=== PATIENT | female | born 1990 | race Caucasian/White ===

== ENCOUNTER 2017-05-25 22:18 | Emergency (ER) | payer BC ==
[~2017-05-25] VITALS: Ht 170.2 cm; Wt 88.1 kg
[2017-05-25 22:21] VITALS: Ht 170.2 cm; Wt 88.1 kg
[2017-05-25] MEDS ORDERED: ALBUT/IPRATROP 3MG/0.5MG NEB 3 ML VIAL INH STA (22:37)
--- NOTE | 2017-05-25 22:46 | DIAGNOSTIC IMAGING REPORT ---
CHEST ONE VIEW PORTABLE CLINICAL HISTORY: Abscess. Wheezing. Difficulty breathing. COMPARISON STUDY: No previous studies for comparison. FINDINGS: The lung volumes are normal. Lungs are clear. No pneumothorax or pleural effusion is noted. Cardiac size is normal. Mediastinal contours are normal. There is no evidence of pulmonary edema. IMPRESSION: No acute cardiopulmonary findings. Electronically signed by: Siva Bruce M.D. 05/25/2017 10:45 PM Dictated Date/Time: 05/25/2017 10:44 PM
[2017-05-25] MEDS ORDERED: CLR10 PO (23:12)
[2017-05-25] MEDS ORDERED: CHOL2000 PO (23:12)
[2017-05-25] MEDS ORDERED: LISI10TA PO (23:12)
[2017-05-25] MEDS ORDERED: RMCI INJ (23:12)
[2017-05-25 23:13] LABS: BASO % 0.8 %; BASO ABS # 0.08 K/uL (0-0.2); EOS % 9.7 %; EOS ABS # 1.03 K/uL (0-0.5); HEMATOCRIT 33.7 % (37-47); HEMOGLOBIN 11.2 g/dL (12.0-16.0); IG# 0.01 K/uL (0.00-0.02); LYMPH % 40.1 %; LYMPH ABS # 4.25 K/uL (1.2-3.4); MEAN CELL VOLUME 85.3 fL (80-100); MEAN CORPUSCULAR HEMOGLOBIN 28.4 pg (25-34); MEAN CORPUSCULAR HGB CONC 33.2 g/dl (32-36); MEAN PLATELET VOLUME 10.1 fL (7.4-10.4); MONO ABS # 0.85 K/uL (0.11-0.59); NEUT % 41.3 %; NEUT ABS # 4.37 K/uL (1.4-6.5); PLATELET COUNT 305 K/uL (130-400); RED CELL DISTRIBUTION WIDTH CV 14.4 % (11.5-14.5); RED CELL DISTRIBUTION WIDTH SD 45.2 fL (36.4-46.3); WHITE BLOOD COUNT 10.59 K/uL (4.8-10.8)
[2017-05-25 23:26] LABS: INR 0.9 (0.9-1.1); PTT PATIENT 25.2 SECONDS (21.0-31.0)
[2017-05-25 23:31] LABS: ALBUMIN 3.7 gm/dl (3.4-5.0); ALT/SGPT 67 U/L (12-78); BLOOD UREA NITROGEN 20 mg/dl (7-18); CALCIUM 8.8 mg/dl (8.5-10.1); CARBON DIOXIDE 27 mmol/L (21-32); CREATININE 1.02 mg/dl (0.60-1.20); GLUCOSE 100 mg/dl (70-99); POTASSIUM 3.7 mmol/L (3.5-5.1); SODIUM 137 mmol/L (136-145)
[2017-05-25 23:36] LABS: ALKALINE PHOSPHATASE 97 U/L (45-117); AST/SGOT 48 U/L (15-37); TOTAL PROTEIN 8.5 gm/dl (6.4-8.2)
[2017-05-25 23:41] LABS: INFLUENZA B ANTIGEN Neg for Influ B (NEG)
[2017-05-26 00:19] VITALS: BP 142/69; PULSE 87; TEMP 36.8; O2SAT 99
[2017-05-26] MEDS ORDERED: ALBUTEROL HFA 8 GM INHALER INH STA (00:50)
--- NOTE | 2017-05-26 04:18 | EMERGENCY ROOM VISIT NOTE ---
History First contact with patient: 22:25 Chief Complaint: RESPIRATORY PROBLEMS Stated Complaint: WHEEZING,HEAVY CHEST, TROUBLE BREATHING Nursing Triage Summary: Patient c/o SOB that began a few days ago. Concerned with pnx. Hx: Crohns. History of Present Illness The patient is a 26 year old female who presents to the Emergency Room with complaints of cough, congestion, chest pain and dyspnea for the past day has had a cold for the past 3 days. Patient has Crohn's disease and received Remicade and Flexzan 8 infusion on Friday. Patient complains of subjective fever and chills with malaise. She has received the flu vaccine. No recent antibiotics. No recent travel. Patient denies abdominal pain, neck stiffness, sore throat, vomiting, diarrhea, back pain, urinary symptoms. She is tolerating p.o. fluids and food. Review of Systems An 10 system review of systems was completed with positives and pertinent negatives listed in the HPI. Past Medical/Surgical History Crohn's, hypertension Social History Smoking Status: Never Smoker Smokeless Tobacco Use: No Drug Use: none Marital Status: single Occupation Status: employed Current/Historical Medications Scheduled Cholecalciferol (Vitamin D3), 2,000 UNITS PO QAM Infliximab (Remicade), 1 DOSE INJ [id number] Lisinopril (Prinivil), 10 MG PO QAM Loratadine (Claritin), 10 MG PO QAM Physical Exam Vital Signs Date Time Temp Pulse Resp B/P (MAP) Pulse Ox O2 Delivery O2 Flow Rate FiO2 05/26/17 00:19 36.8 87 18 142/69 99 Room Air 05/25/17 23:04 Room Air 05/25/17 22:21 36.7 79 18 160/97 96 Room Air Physical Exam VITALS: Vitals are noted on the nurse's note and reviewed by myself. Vital signs stable. GENERAL: Pleasant female, in no acute distress, nondiaphoretic, well-developed well-nourished. SKIN: The skin was without rashes, erythema, edema, or bruising. There is no tenting of the skin. Capillary reflex less than 2 seconds. HEAD: Normocephalic atraumatic. EARS: External auditory canals clear, tympanic membranes pearly noble without erythema or effusion bilaterally. EYES: Pupils equal round and reactive to light and accommodation. Conjunctivae without injection, sclerae without icterus. Extraocular movements intact. NOSE: Patent, turbinates without inflammation or discharge. No sinus tenderness. MOUTH: Mucous membranes moist. Pharynx without erythema or exudate. Uvula midline. Airway patent. Tongue does not deviate. NECK: Supple without nuchal rigidity. No lymphadenopathy. No thyromegaly. Cervical spine is nontender. No JVD. HEART: Regular rate and rhythm without murmurs gallops or rubs. LUNGS: Clear to auscultation bilaterally without wheezes, rales or rhonchi. No dullness to percussion. No retractions or accessory muscle use. ABDOMEN: Positive bowel sounds x 4. Normal tympanic percussion. Soft, nontender, without masses or organomegaly. Duque sign negative. No guarding or rebound tenderness. MUSCULOSKELETAL: No muscle atrophy, erythema, or edema noted. NEURO: Patient was alert and oriented to person place and time. Normal sensation to light and sharp touch. No focal neurological deficits. Medical Decision & Procedures Laboratory Results 05/25/17 22:54 Red Blood Count 3.95, Mean Corpuscular Volume 85.3, Mean Corpuscular Hemoglobin 28.4, Mean Corpuscular Hemoglobin Concent 33.2, Mean Platelet Volume 10.1, Neutrophils (%) (Auto) 41.3, Lymphocytes (%) (Auto) 40.1, Monocytes (%) (Auto) 8.0, Eosinophils (%) (Auto) 9.7, Basophils (%) (Auto) 0.8, Neutrophils # (Auto) 4.37, Lymphocytes # (Auto) 4.25, Monocytes # (Auto) 0.85, Eosinophils # (Auto) 1.03, Basophils # (Auto) 0.08 05/25/17 22:54 Test 05/25/17 22:54 05/25/17 22:59 05/25/17 23:06 White Blood Count 10.59 K/uL (4.8-10.8) Red Blood Count 3.95 M/uL (4.2-5.4) Hemoglobin 11.2 g/dL (12.0-16.0) Hematocrit 33.7 % (37-47) Mean Corpuscular Volume 85.3 fL (80-100) Mean Corpuscular Hemoglobin 28.4 pg (25-34) Mean Corpuscular Hemoglobin Concent 33.2 g/dl (32-36) Platelet Count 305 K/uL (130-400) Mean Platelet Volume 10.1 fL (7.4-10.4) Neutrophils (%) (Auto) 41.3 % Lymphocytes (%) (Auto) 40.1 % Monocytes (%) (Auto) 8.0 % Eosinophils (%) (Auto) 9.7 % Basophils (%) (Auto) 0.8 % Neutrophils # (Auto) 4.37 K/uL (1.4-6.5) Lymphocytes # (Auto) 4.25 K/uL (1.2-3.4) Monocytes # (Auto) 0.85 K/uL (0.11-0.59) Eosinophils # (Auto) 1.03 K/uL (0-0.5) Basophils # (Auto) 0.08 K/uL (0-0.2) RDW Standard Deviation 45.2 fL (36.4-46.3) RDW Coefficient of Variation 14.4 % (11.5-14.5) Immature Granulocyte % (Auto) 0.1 % Immature Granulocyte # (Auto) 0.01 K/uL (0.00-0.02) Prothrombin Time 9.6 SECONDS (9.0-12.0) Prothromb Time International Ratio 0.9 (0.9-1.1) Activated Partial Thromboplast Time 25.2 SECONDS (21.0-31.0) Partial Thromboplastin Ratio 1.0 D-Dimer 320 ug/L FEU (0-500) Anion Gap 7.0 mmol/L (3-11) Est Creatinine Clear Calc Drug Dose 93.6 ml/min Estimated GFR () 86.7 Estimated GFR (Non- 74.8 BUN/Creatinine Ratio 19.6 (10-20) Calcium Level 8.8 mg/dl (8.5-10.1) Total Bilirubin 0.2 mg/dl (0.2-1) Aspartate Amino Transf (AST/SGOT) 48 U/L (15-37) Alanine Aminotransferase (ALT/SGPT) 67 U/L (12-78) Alkaline Phosphatase 97 U/L (45-117) Troponin I < 0.015 ng/ml (0-0.045) Total Protein 8.5 gm/dl (6.4-8.2) Albumin 3.7 gm/dl (3.4-5.0) Globulin 4.8 gm/dl (2.5-4.0) Albumin/Globulin Ratio 0.8 (0.9-2) Procalcitonin < 0.05 ng/ml (0-0.5) Human Chorionic Gonadotropin, Qual NEG (NEG) Bedside Lactic Acid Venous 0.62 mmol/L (0.90-1.70) Bedside Troponin I < 0.030 ng/ml (0-0.045) Influenza Type A Antigen Neg for Influ A (NEG) Influenza Type B Antigen Neg for Influ B (NEG) Medications Administered Medications (Trade) Dose Ordered Sig/Gopal Route Start Time Stop Time Status Last Admin Dose Admin Albuterol/ Ipratropium (Duoneb) 3 ml NOW STAT INH 05/25/17 22:37 05/25/17 22:38 DC 05/25/17 23:03 3 ML Albuterol (Ventolin Hfa Inhaler) 2 puffs ONE STAT INH 05/26/17 00:50 05/26/17 00:51 DC 05/26/17 00:50 2 PUFFS ED Course Prior records/ancillary studies reviewed. Triage Nursing notes reviewed. Additional history obtained from friend. The patient's history was concerning for cough, congestion, dyspnea and chest pain. Differential diagnosis: Etiologies such as cardiac ischemia, aortic dissection, pulmonary embolism, pneumonia, pneumothorax, musculoskeletal, infections, pericarditis, myocarditis , esophageal rupture, gastrointestinal, as well as others were entertained. Physical examination: As above. ER treatment provided: Nebulizer On reassessment the patient felt better. Diagnostic interpretation by me: The electrocardiogram was negative for pathologic change. Normal sinus, normal intervals, no acute ST-T wave changes, rate is 73. Impression normal sinus rhythm at a rate of by myself The labs revealed negative d-dimer. Negative troponin, negative lactic acid Blood cultures pending Imaging studies: Chest x-ray as above CHEST ONE VIEW PORTABLE CLINICAL HISTORY: Abscess. Wheezing. Difficulty breathing. COMPARISON STUDY: No previous studies for comparison. FINDINGS: The lung volumes are normal. Lungs are clear. No pneumothorax or pleural effusion is noted. Cardiac size is normal. Mediastinal contours are normal. There is no evidence of pulmonary edema. IMPRESSION: No acute cardiopulmonary findings. Electronically signed by: Siva Bruce M.D. Exam and history seems consistent with bronchitis. Patient felt much better to be medicated as above. No pneumonia on x-ray. Negative d-dimer. Negative troponin. Negative lactic acid. Negative influenza. Patient was advised to take medicines as directed, rest, stay well hydrated and follow-up family here in a few days here in the ER sooner for high fevers, lethargy, neck stiffness, worsening signs or symptoms or as needed. Patient had no signs of meningitis. She did not have an acute abdomen on exam. By the evaluation outlined above emergent etiologies such as cardiac ischemia, aortic dissection, pulmonary embolism, pneumonia, pneumothorax, infections, pericarditis, myocarditis, gastrointestinal, as well as others were deemed relatively unlikely. The pt informed about the findings as listed above. All questions were answered and pleased with the treatment. Return instructions were outlined and the patient was discharged in stable condition. Referral: The patient was referred back to primary care physician for follow-up in 2 to 3 days for a recheck of the current condition. Case reviewed with my attending. The chart was completed utilizing [employer] Speech voice recognition software. Grammatical errors, random word insertions, pronoun errors, and incomplete sentences are an occassional consequence of this system due to software limitations, ambient noise, and hardware issues. Any formal questions or concerns about the content, text, or information contained within the body of this dictation should be directly addressed to the physician instruction assistant principal for clarification. Medical Decision As above Medication Reconcilliation Current Medication List: was personally reviewed by me Blood Pressure Screening Patient's blood pressure: Elevated blood pressure Blood pressure disposition: Elevated BP felt to be situational Impression Primary Impression: Bronchitis Additional Impression: Anemia Departure Information Referrals No Doctor, Assigned (PCP) Patient Instructions My [facility] Health Problem Qualifiers
== END 2017-05-26 01:01 | disposition home or self-care (01) ==
LOC: C.EDB 22:20 → C.EDA 05-26 01:01
DX: J40 Bronchitis, not specified as acute or chronic (principal); D64.9 Anemia, unspecified; K50.90 Crohn's disease, unspecified, without complications; I10 Essential (primary) hypertension